=== PATIENT | female | born 1955 | race Caucasian/White ===

== ENCOUNTER 2017-11-29 17:59 | Emergency (ER) | END 2017-11-29 21:04 | disposition home or self-care (01) ==

== ENCOUNTER 2018-06-10 06:56 | Emergency (ER) | payer MEDICARE, OTHER ==
[~2018-06-10] VITALS: Wt 89.0 kg
[~2018-06-10 06:56] MED LIST: LISI-471 PO; METF500T24 PO; TRAZ-111 PO; ZOLP10TA PO
[2018-06-10 06:57] VITALS: BP 189/90; PULSE 99; RESP 18
[2018-06-10] MEDS ORDERED: AZIT250T PO (07:29)
[2018-06-10] MEDS ORDERED: BENZ-6 PO (07:29)
[2018-06-10] MEDS ORDERED: ZOLP10TA PO (07:29)
--- NOTE | 2018-06-10 07:36 | ERD ---
ER Documentation Chief Complaint Chief Complaint sore throat HPI 63-year-old female presents with cough which is productive, loss of voice for the last week. She denies fevers. Denies chest pain, vomiting. She has an additional complaint of insomnia is requesting refills on her Ambien until her doctor returns to town in 2 weeks. She states she ran out a week ago and has had difficulty sleeping and cough is making her insomnia more severe. ROS All systems reviewed and are negative except as per history of present illness. Medications Home Meds Active Scripts Benzonatate* (Tessalon Perle*) 100 Mg Capsule, 100 MG PO Q8H PRN for COUGH, #20 CAP Prov:SOILA GARSIA MD 06/10/18 Azithromycin* (Zithromax*) 250 Mg Tablet, 250 MG PO .ZPACK DIRECTED, #6 TAB TAKE 500 MG (2 TABS) THE FIRST DAY THEN 250 MG (1 TAB) DAYS 2-5 Prov:SOILA GARSIA MD 06/10/18 Zolpidem Tartrate* (Ambien*) 10 Mg Tablet, 10 MG PO QHS PRN for INSOMNIA, #15 TAB Prov:SOILA GARSIA MD 06/10/18 Zolpidem Tartrate* (Ambien*) 10 Mg Tablet, 10 MG PO QHS PRN for INSOMNIA, #20 TAB Prov:BRIGETTE CERVANTES 11/29/17 Reported Medications Trazodone Hcl* (Trazodone Hcl*) 50 Mg Tablet, 50 MG PO QHS, #30 TAB 11/11/15 Metformin Hcl* (Metformin Hcl*) 500 Mg Tablet, 500 MG PO WITH BREAKFAST, #30 TAB 11/11/15 Lisinopril* (Lisinopril*) 20 Mg Tablet, 20 MG PO DAILY, #30 TAB 11/11/15 Allergies Allergies: Coded Allergies: Phenothiazines (Verified Allergy, Mild, 07/10/13) PMhx/Soc History of Surgery: Yes (RIGHT ARM TENDON, LEFT BUNION) Anesthesia Reaction: No Hx Neurological Disorder: No Hx Respiratory Disorders: No Hx Cardiac Disorders: Yes (HTN) Hx Psychiatric Problems: Yes (INSOMNIA, bipolar) Hx Miscellaneous Medical Probl: No Hx Alcohol Use: Yes (OCCASIONAL) Hx Substance Use: No Hx Tobacco Use: No FmHx Family History: No diabetes, No coronary disease, No other Physical Exam Vitals Vital Signs Date Temp Pulse Resp B/P (MAP) Pulse Ox O2 O2 Flow FiO2 Time Delivery Rate 06/10/18 97.8 99 18 189/90 99 06:57 (123) Physical Exam Const: No acute distress Head: Atraumatic Eyes: Normal Conjunctiva ENT: Normal External Ears, Nose and Mouth. TMs normal. Oropharynx normal. Neck: Full range of motion. No meningismus. Resp: Clear to auscultation bilaterally. Rhonchi without rales, wheezing or retractions. Cardio: Regular rate and rhythm, no murmurs Abd: Soft, non tender, non distended. Normal bowel sounds Skin: No petechiae or rashes Back: No midline or flank tenderness Ext: No cyanosis, or edema Neur: Awake and alert Psych: Normal Mood and Affect Procedures/MDM She presents with productive cough for the last week. She has no evidence of hypoxemia, rest or distress, signs of pneumonia on exam. Given duration of the patient request we will treat empirically with Zithromax, Tessalon. She will be given a short course of Ambien until she can see her primary care doctor. She also has elevated blood pressure is advised to follow-up with primary care doctor for this. Cures review shows monthly supply of Ambien by PCP last refill approximately 5 weeks ago. The patient was stable with no new complaints during the ER course. Clinically, there is no current evidence to suggest meningitis, sepsis, acute abdomen, pneumonia, stroke, acute coronary syndrome, pulmonary embolism, aortic dissection or any other emergent condition appearing to require further evaluation or hospitalization. Patient counseled regarding my diagnostic impression and care plan. Prior to discharge all questions answered. Pt agrees with treatment plan and understands strict return precautions. Pt is instructed to follow up with primary care provider within 24-48 hours. Precautionary instructions provided including instructions to return to the ER if not improving or for any worsening or changing symptoms or concerns. Disclaimer: Inadvertent spelling and grammatical errors are likely due to EHR/dictation software use and do not reflect on the overall quality of patient care. Also, please note that the electronic time recorded on this note does not necessarily reflect the actual time of the patient encounter. Departure Diagnosis: Primary Impression: Insomnia Additional Impression: URI, acute Condition: Stable Patient Instructions: Bronchitis, Antiobiotic Treatment (Adult), Insomnia Additional Instructions: See primary doctor for follow-up and management of high blood pressure.. Check otherwise for new or worsening symptoms. SOILA GARSIA MD Jun 10, 2018 07:36
== END 2018-06-10 07:54 | disposition home or self-care (01) ==
LOC: FTE 06:56
DX: G47.00 Insomnia, unspecified (principal); J06.9 Acute upper respiratory infection, unspecified; I10 Essential (primary) hypertension; E11.9 Type 2 diabetes mellitus without complications; Z79.84 Long term (current) use of oral hypoglycemic drugs
CPT/HCPCS: 99283

== ENCOUNTER 2018-07-10 15:52 | Emergency (ER) | payer MEDICARE, OTHER ==
[~2018-07-10] VITALS: Wt 97.0 kg
[~2018-07-10 15:52] MED LIST changes: +AZIT250T PO; +BENZ-6 PO
[2018-07-10] MEDS ORDERED: SULF1TAB31 PO (18:38)
[2018-07-10] MEDS ORDERED: TRAM50TA2 PO (18:38)
[2018-07-10] MEDS ORDERED: CEPH-443 PO (18:38)
[2018-07-10 18:43] VITALS: BP 150/95; PULSE 80; RESP 19
--- NOTE | 2018-07-10 20:06 | ERD ---
ER Documentation Chief Complaint Chief Complaint L TOE INFLAMMATION S/P PEDICURE; HX DIABETES HPI 63-year-old female patient with a past medical history of diabetes presents to ED complaining of right toe inflammation status post pedicure. Patient reports that she sees a diplomatic courier every 2 months. Denies any loss of sensation, loss of range of motion, fever, chills. Patient denies any injuries or trauma. ROS All systems reviewed and are negative except as per history of present illness. Medications Home Meds Active Scripts Tramadol HCl (Tramadol HCl) 50 Mg Tablet, 50 MG PO Q6 PRN for PAIN, #20 TAB Prov:MOR TRIMBLE PA-C 07/10/18 Sulfamethoxazole/Trimethoprim* (Bactrim Ds* Tablet) 1 Each Tablet, 1 TAB PO BID for 7 Days, #14 TAB Prov:MOR TRIMBLE PA-C 07/10/18 Cephalexin* (Keflex*) 500 Mg Capsule, 500 MG PO QID for 7 Days, CAP Prov:MOR TRIMBLE PA-C 07/10/18 Benzonatate* (Tessalon Perle*) 100 Mg Capsule, 100 MG PO Q8H PRN for COUGH, #20 CAP Prov:SOILA GARSIA MD 06/10/18 Azithromycin* (Zithromax*) 250 Mg Tablet, 250 MG PO .ArthurPACK DIRECTED, #6 TAB TAKE 500 MG (2 TABS) THE FIRST DAY THEN 250 MG (1 TAB) DAYS 2-5 Prov:SOILA GARSIA MD 06/10/18 Zolpidem Tartrate* (Ambien*) 10 Mg Tablet, 10 MG PO QHS PRN for INSOMNIA, #15 TAB Prov:SOILA GARSIA MD 06/10/18 Zolpidem Tartrate* (Ambien*) 10 Mg Tablet, 10 MG PO QHS PRN for INSOMNIA, #20 TAB Prov:BRIGETTE CERVANTES 11/29/17 Reported Medications Trazodone Hcl* (Trazodone Hcl*) 50 Mg Tablet, 50 MG PO QHS, #30 TAB 11/11/15 Metformin Hcl* (Metformin Hcl*) 500 Mg Tablet, 500 MG PO WITH BREAKFAST, #30 TAB 11/11/15 Lisinopril* (Lisinopril*) 20 Mg Tablet, 20 MG PO DAILY, #30 TAB 11/11/15 Allergies Allergies: Coded Allergies: Phenothiazines (Verified Allergy, Mild, 07/10/13) PMhx/Soc History of Surgery: Yes (RIGHT ARM TENDON, LEFT BUNION) Anesthesia Reaction: No Hx Neurological Disorder: No Hx Respiratory Disorders: No Hx Cardiac Disorders: Yes (HTN) Hx Psychiatric Problems: Yes (INSOMNIA, bipolar) Hx Miscellaneous Medical Probl: No Hx Alcohol Use: Yes (OCCASIONAL) Hx Substance Use: No Hx Tobacco Use: No Smoking Status: Never smoker FmHx Family History: No diabetes, No coronary disease Physical Exam Vitals Vital Signs Date Temp Pulse Resp B/P (MAP) Pulse Ox O2 O2 Flow FiO2 Time Delivery Rate 07/10/18 98.6 80 19 150/95 97 Room Air 18:43 (113) 07/10/18 98.4 95 20 188/100 96 17:09 (129) Physical Exam Const: [id number]-mwr-dwcmeagiy, well-nourished. In no acute distress. Head: Atraumatic, normocephalic Eyes: Normal Conjunctiva without injection ENT: Normal external ear, nose and mouth. Neck: Full range of motion. No meningismus. Resp: Clear to auscultation bilaterally. No wheezing, rhonchi, rales, or crackles. No accessory muscle use. No retractions. Cardio: Regular rate and rhythm, no murmurs Skin: No petechiae or rashes Back: No midline tenderness. No CVA tenderness. Ext: No cyanosis, or edema. Cap refill less than 2 seconds. Distal pulses intact bilaterally. Erythema noted of the dorsal aspect of patient's right toe. Edema noted. No purulent discharge noted. Neur: Awake and alert. Normal gait and coordination. Muscle strength 5/5. Sensation intact bilaterally. Psych: Normal Mood and Affect Procedures/MDM 63-year-old female patient with no significant past medical history presents to ED complaining of right toe inflammation. Patient is afebrile and nontoxic- appearing. Patient likely has right foot cellulitis. It was instructed to return to the ED in 2 days for wound check. Bactrim, Keflex was ordered to further treat patient as well as tramadol for her pain. Low suspicion for anaphylaxis, scabies, SJS /TEN, TSS, Lyme's Disease, syphilis, RMSF, shingles, disseminated gonorrhea chlamydia, DIC, TTP, ITP, erythema multiforme, sepsis, cellulitis, necrotizing fasciitis, gangrene, meningococcemia, allergic contact dermatitis, urticaria, eczema, tinea infection, or other emergent conditions. Patient's extremity symptoms have stabilized while they have been evaluated in the department and are appropriate for outpatient follow up. No evidence of fractures, dislocations, compartment syndrome, neurologic injury, vascular injury, open joint, open fracture, tendon laceration, septic arthritis, osteomyelitis, DVT, foreign body, or other emergent conditions. Diagnosis: Cellulitis of Foot Discharge medications: Tramadol, Bactrim, Keflex Follow up with primary care physician in 1-2 days. Instructed patient to return to the ED sooner for any worsening symptoms. Patient's questions were answered. Patient is hemodynamically stable. Patient understood and agreed with discharge plan. Patient discharged stable. Disclaimer: Inadvertent spelling and grammatical errors are likely due to EHR/dictation software use and do not reflect on the overall quality of patient care. Also, please note that the electronic time recorded on this note does not necessarily reflect the actual time of the patient encounter. Departure Diagnosis: Primary Impression: Cellulitis of foot Condition: Stable Patient Instructions: Cellulitis, Diabetic Foot Care Referrals: [facility] YOU HAVE RECEIVED A MEDICAL SCREENING EXAM AND THE RESULTS INDICATE THAT YOU DO NOT HAVE A CONDITION THAT REQUIRES URGENT TREATMENT IN THE EMERGENCY DEPARTMENT. FURTHER EVALUATION AND TREATMENT OF YOUR CONDITION CAN WAIT UNTIL YOU ARE SEEN IN YOUR DOCTORS OFFICE WITHIN THE NEXT 1-2 DAYS. IT IS YOUR RESPONSIBILITY TO MAKE AN APPOINTMENT FOR FOLOW-UP CARE. IF YOU HAVE A PRIMARY DOCTOR --you should call your primary doctor and schedule an appointment IF YOU DO NOT HAVE A PRIMARY DOCTOR YOU CAN CALL OUR PHYSICIAN REFERRAL HOTLINE AT IF YOU CAN NOT AFFORD TO SEE A PHYSICIAN YOU CAN CHOSE FROM THE FOLLOWING [facility] [address] [facility] [address] [facility] [address] [facility] [address] [facility] [address] [facility]. [facility] [address] [facility]. [facility] YOU HAVE RECEIVED A MEDICAL SCREENING EXAM AND THE RESULTS INDICATE THAT YOU DO NOT HAVE A CONDITION THAT REQUIRES URGENT TREATMENT IN THE EMERGENCY DEPARTMENT. FURTHER EVALUATION AND TREATMENT OF YOUR CONDITION CAN WAIT UNTIL YOU ARE SEEN IN YOUR DOCTORS OFFICE WITHIN THE NEXT 1-2 DAYS. IT IS YOUR RESPONSIBILITY TO MAKE AN APPOINTMENT FOR FOLOW-UP CARE. IF YOU HAVE A PRIMARY DOCTOR --you should call your primary doctor and schedule and appointment IF YOU DO NOT HAVE A PRIMARY DOCTOR YOU CAN CALL OUR PHYSICIAN REFERRAL HOTLINE AT . IF YOU CAN NOT AFFORD TO SEE A PHYSICIAN YOU CAN CHOSE FROM THE FOLLOWING [facility]: [facility] [address] [place] [address] [facility] [address] [place] [address] [facility] + [facility] [address] [place] [address] [facility] Additional Instructions: Call your primary care doctor TOMORROW for an appointment during the next 2-3 days.See the doctor sooner or return here if your condition worsens before your appointment time. MOR TRIMBLE PA-C Jul 10, 2018 20:06
== END 2018-07-10 18:44 | disposition home or self-care (01) ==
LOC: FTE 15:52
DX: L03.115 Cellulitis of right lower limb (principal); I10 Essential (primary) hypertension
CPT/HCPCS: 99283

== ENCOUNTER 2019-02-03 07:52 | Emergency (ER) | payer MEDICARE, OTHER ==
[~2019-02-03] VITALS: Ht 162.6 cm; Wt 95.6 kg
[~2019-02-03 07:52] MED LIST changes: +CEPH-443 PO; +SULF1TAB31 PO; +TRAM50TA2 PO
[2019-02-03 07:58] VITALS: BP 174/79; PULSE 86; RESP 18; Ht 162.6 cm; Wt 95.6 kg
== END 2019-02-03 08:41 | disposition home or self-care (01) ==
LOC: FTE 07:52
DX: G47.00 Insomnia, unspecified (principal); I10 Essential (primary) hypertension; E11.9 Type 2 diabetes mellitus without complications; Z79.84 Long term (current) use of oral hypoglycemic drugs
CPT/HCPCS: 99281